=== PATIENT | male | born 1950 | race Hispanic/Latino ===

== ENCOUNTER 2018-04-16 08:21 | Day surgery (SDC) | payer OTHER, MEDICARE ==
[~2018-04-16] VITALS: Ht 167.6 cm; Wt 62.6 kg
[~2018-04-16 08:21] MED LIST: ACET-2743 PO; LACT10SO32 PO; LISI40TA4 PO; SIMV40TA5 PO; SODIUM CHLORIDE 0.9% 1000ML 1,000 ML IV ONE
[2018-04-16 09:45] VITALS: BP 112/65
[2018-04-16] MEDS ORDERED: ASPI-555 PO (10:12)
[2018-04-16] MEDS ORDERED: CEFAZOLIN SODIUM 1 GM VIAL ONE (10:19)
[2018-04-16 11:07] VITALS: BP 119/90
== END 2018-04-16 11:45 | disposition home or self-care (01) ==
LOC: DAH 08:21
PROVIDERS: ATTEND Internal Medicine Gastroenterology
DX: K29.50 Unspecified chronic gastritis without bleeding (principal); C32.9 Malignant neoplasm of larynx, unspecified; Z79.899 Other long term (current) drug therapy; Z98.890 Other specified postprocedural states; Z88.8 Allergy status to other drugs, medicaments and biological substances; I45.19 Other right bundle-branch block
CPT/HCPCS: 43246; 93005; A4606; J0690; J7030